=== PATIENT | female | born 1955 | race American Indian/Alaskan Native ===

== ENCOUNTER 2019-08-28 14:20 | Observation (INO) | payer MEDICARE ==
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
[2019-08-28 16:48] LABS: Basophils # (Auto) 0.1 K/mm3 (0.0-0.1); Basophils % (Auto) 0.7 % (0.0-1.8); Eosinophils # (Auto) 0.1 K/mm3 (0.0-0.4); Eosinophils % (Auto) 0.9 % (0.0-4.3); Hematocrit 40.3 % (30.3-42.9); Hemoglobin 12.9 gm/dl (10.1-14.3); Lymphocytes # (Auto) 3.2 K/mm3 (1.2-5.4); Lymphocytes % (Auto) 35.9 % (13.4-35.0); Mean Corpuscular HGB Conc 32 % (30-34); Mean Corpuscular Volume 82 fl (79-97); Monocytes # (Auto) 0.6 K/mm3 (0.0-0.8); Monocytes % (Auto) 7.1 % (0.0-7.3); Platelet Count 443 K/mm3 (140-440); Red Blood Count 4.91 M/mm3 (3.65-5.03); Red Cell Distribution Width 13.7 % (13.2-15.2)
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
[2019-08-28 16:58] LABS: Bacteria,Urine 1+ /HPF (Negative); Bilirubin,Urine NEG (Negative); Blood,Urine NEG (Negative); Color,Urine Yellow (Yellow); Hyaline Casts,Urine 1 /LPF; Mucus,Urine FEW /HPF; RBC,Urine < 1.0 /HPF (0.0-6.0); Urobilinogen,Urine < 2.0 mg/dL (<2.0)
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
[2019-08-28 17:37] LABS: Alanine Aminotransferase 10 units/L (7-56); Albumin 3.9 g/dL (3.9-5); BUN/Creatinine Ratio 12; Blood Urea Nitrogen 12 mg/dL (7-17); Calcium 10.9 mg/dL (8.4-10.2); Hemolysis Index 57
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
[2019-08-28] MEDS ORDERED: MAGNESIUM HYDROXIDE (MOM) ORAL LIQD UDC PO PRN (21:53)
[2019-08-28] MEDS ORDERED: ACETAMINOPHEN 325 MG TAB PO PRN (21:53)
[2019-08-28] MEDS ORDERED: MORPHINE 2 MG/1 ML INJ IV PRN (21:53)
[2019-08-28] MEDS ORDERED: DEXTROSE 50% IN WATER (25GM) 50 ML SYRINGE IV PRN (21:53)
[2019-08-28] MEDS ORDERED: ONDANSETRON 4 MG/2 ML INJ IV PRN (21:53)
[2019-08-28] MEDS ORDERED: SODIUM CHLORIDE 0.9% 1000 ML 1,000 ML IV SCH (22:00)
--- NOTE | 2019-08-28 22:24 | History and Physical Report ---
History of Present Illness Date of examination: 08/28/19 Date of admission: 08/28/19 21:16 Chief complaint: Syncope Past History Past Medical History: CAD, diabetes, hypertension, stroke Past Surgical History: No surgical history Social history: smoking (Smokes half a pack of cigarette daily), alcohol abuse (Drinks alcohol occasionally) Family history: no significant family history Medications and Allergies Allergies Allergy/AdvReac Type Severity Reaction Status Date / Time Penicillins Allergy Unknown Verified 08/28/19 22:12 Active Meds: Active Medications Acetaminophen (Tylenol) 650 mg PO Q4H PRN PRN Reason: Pain MILD(1-3)/Fever >100.5/CADE Dextrose (D50w (25gm) Syringe) 0 ml IV Q30MIN PRN; Protocol PRN Reason: Hypoglycemia Sodium Chloride (Nacl 0.9% 1000 Ml) 1,000 mls @ 75 mls/hr IV DIRECT ARTEM Insulin Human Lispro (Humalog) 0 unit SUB-Q ACHS ARTEM; Protocol Magnesium Hydroxide (Milk Of Magnesia) 30 ml PO Q4H PRN PRN Reason: Constipation Morphine Sulfate (Morphine) 2 mg IV Q4H PRN PRN Reason: Pain, Moderate (4-6) Ondansetron HCl (Zofran) 4 mg IV Q8H PRN PRN Reason: Nausea And Vomiting Sodium Chloride (Sodium Chloride Flush Syringe 10 Ml) 10 ml IV BID ARTEM Sodium Chloride (Sodium Chloride Flush Syringe 10 Ml) 10 ml IV PRN PRN PRN Reason: LINE FLUSH Review of Systems Constitutional: no fever, no chills Ears, nose, mouth and throat: no nasal congestion, no sore throat Cardiovascular: no chest pain, no palpitations Respiratory: no cough, no shortness of breath Gastrointestinal: abdominal pain, no nausea, no vomiting, no diarrhea Genitourinary Female: no flank pain, no dysuria, no hematuria Musculoskeletal: no neck pain, no low back pain Integumentary: no rash, no pruritis Neurological: syncope, no headaches, no confusion Psychiatric: no anxiety, no depression Exam - Constitutional Vitals: Temp Pulse Resp BP Pulse Ox 98.6 F 86 23 183/79 99 08/28/19 17:40 08/28/19 19:16 08/28/19 19:16 08/28/19 19:16 08/28/19 19:16 General appearance: Present: no acute distress, well-nourished - EENT Eyes: Present: PERRL, EOM intact. Absent: scleral icterus ENT: hearing intact, clear oral mucosa, dentition normal - Neck Neck: Present: supple, normal ROM - Respiratory Respiratory effort: normal Respiratory: bilateral: CTA - Cardiovascular Rhythm: regular Heart Sounds: Present: S1 & S2. Absent: gallop, systolic murmur, diastolic murmur, rub - Extremities Extremities: no ischemia, pulses intact, pulses symmetrical, No edema, Full ROM Peripheral Pulses: within normal limits - Abdominal General gastrointestinal: Present: soft, non-tender, non-distended, normal bowel sounds. Absent: mass - Integumentary Integumentary: Present: clear, warm, dry. Absent: jaundice, rash - Musculoskeletal Musculoskeletal: strength equal bilaterally - Psychiatric Psychiatric: appropriate mood/affect, intact judgment & insight, memory intact, cooperative - Neurologic Neurologic: CNII-XII intact, no focal deficits, moves all extremities HEART Score - HEART Score Troponin: Troponin T < 0.010 ng/mL (0.00-0.029) 08/28/19 16:28 Results - Labs CBC & Chem 7: 08/28/19 16:28 08/28/19 16:28 Labs: Abnormal lab results 08/28/19 08/28/19 Range/Units 16:28 16:28 MCH 26 L (28-32) pg Plt Count 443 H (140-440) K/mm3 Lymph % (Auto) 35.9 H (13.4-35.0) % Glucose 117 H (65-100) mg/dL Calcium 10.9 H (8.4-10.2) mg/dL Assessment and Plan - Patient Problems (1) Syncope Current Visit: Yes Status: Acute (2) Abdominal contusion Current Visit: Yes Status: Acute (3) Diabetes mellitus Current Visit: Yes Status: Acute (4) Hypertension Current Visit: Yes Status: Acute (5) DVT prophylaxis Current Visit: Yes Status: Acute (6) Full code status Current Visit: Yes Status: Acute
[2019-08-28] MEDS ORDERED: INSULIN LISPRO 100 UNIT/ML SUB-Q ONE (22:44)
[2019-08-28] MEDS: INSULIN LISPRO 100 UNIT/ML SUB-Q SCH (23:10)
[2019-08-29] MEDS ORDERED: hydrALAZINE 20 MG/1 ML INJ IV ONE (00:26)
[2019-08-29] MEDS: INSULIN LISPRO 100 UNIT/ML SUB-Q SCH ×2 (08:29→12:07)
[2019-08-29 08:51] LABS: Basophils % (Auto) 0.5 % (0.0-1.8); Eosinophils # (Auto) 0.1 K/mm3 (0.0-0.4); Eosinophils % (Auto) 1.1 % (0.0-4.3); Hematocrit 38.1 % (30.3-42.9); Hemoglobin 12.3 gm/dl (10.1-14.3); Lymphocytes # (Auto) 2.5 K/mm3 (1.2-5.4); Lymphocytes % (Auto) 37.3 % (13.4-35.0); Mean Corpuscular HGB Conc 32 % (30-34); Mean Corpuscular Volume 82 fl (79-97); Monocytes # (Auto) 0.5 K/mm3 (0.0-0.8); Monocytes % (Auto) 7.1 % (0.0-7.3); Platelet Count 426 K/mm3 (140-440); Red Blood Count 4.66 M/mm3 (3.65-5.03); Red Cell Distribution Width 13.6 % (13.2-15.2)
[2019-08-29 09:03] LABS: INR 0.97 (0.87-1.13)
[2019-08-29 09:28] LABS: BUN/Creatinine Ratio 13; Blood Urea Nitrogen 12 mg/dL (7-17); Hemolysis Index 0
[2019-08-29 11:36] VITALS: BP 162/87
--- NOTE | 2019-08-29 13:52 | Vascular Lab Report ---
"DUPLEX DOPPLER ULTRASOUND CAROTID, BILATERAL INDICATION: syncope. FINDINGS: RIGHT CAROTID: Large amount of calcified plaque Right ICA peak systolic velocity: 296 cm/sec. End-diastolic velocity 101 Right Vertebral Artery: Antegrade flow. LEFT CAROTID: Large amount of plaque with occluded left internal carotid artery. Left ICA peak systolic velocity occluded Left Vertebral Artery: Antegrade flow. Increased velocity 151 cm/s IMPRESSION: 1. Right Internal Carotid Artery: >70% diameter stenosis but less than total occlusion 2. Left Internal Carotid Artery: Total occlusion with increased velocity left vertebral artery from c ollateral flow Velocity criteria are extrapolated from diameter data as defined by the Society of Radiologists in Ul trasound Consensus Conference, Radiology 2003; 229;340-346. Degree of Stenosis (%) || ICA PSV (cm/sec) || Plaque estimate (%) || ICA/CCA PSV Ratio Normal <125 None <2.0 <50 <125 <50 <2.0 50-69 125-230 50 2.0-4.0 70 but less than 100 >230 50 >4.0 Near occlusion High, low, or none visible variable Total occlusion None visible; no lumen N/A Signer Name: Hakeem Kraft MD Signed: 08/29/2019 1:48 PM Workstation Name: [id number]"
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
== END 2019-08-29 12:10 | disposition home or self-care (01) ==
LOC: ED 14:20 → 4A 21:16
PROVIDERS: ADMIT Internal Medicine Geriatric Medicine; ATTEND Internal Medicine
DX: R55 Syncope and collapse (principal); S30.1XXA Contusion of abdominal wall, initial encounter; S80.12XA Contusion of left lower leg, initial encounter; I25.10 Atherosclerotic heart disease of native coronary artery without angina pectoris; E11.9 Type 2 diabetes mellitus without complications; I10 Essential (primary) hypertension; F17.200 Nicotine dependence, unspecified, uncomplicated; Z79.4 Long term (current) use of insulin; Z86.73 Personal history of transient ischemic attack (TIA), and cerebral infarction without residual deficits; V47.5XXA Car driver injured in collision with fixed or stationary object in traffic accident, initial encounter; Y93.89 Activity, other specified; Y92.89 Other specified places as the place of occurrence of the external cause; Y99.8 Other external cause status
CPT/HCPCS: 36415; 70450; 71046; 71275; 72125; 73552; 73590; 74177; 80048; 80053; 81001; 82962; 84484; 85025; 85610; 93005; 93880; 96374; 99285; G0378; J0360; Q9967; J1815